=== PATIENT | female | born 1950 | race Two or more races ===

== ENCOUNTER → 2020-07-02 | Outpatient (CLI) | payer MEDICARE, OTHER, SELFPAY ==
--- NOTE | 2020-07-02 | TOBX_PTH ---
PATIENT: ANSELMO WALLER LOC: [facility] U#:[id number] AGE/SX: 70/F ROOM: RE07/02/[address]: Dr. 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 Negative for malignancy. Special stain for fungi is negative for organisms; matched control is appropriate. KIMBERLY:rayo 07/03/20 COMMENT Case has been reviewed in consultation with Dr. Ojeda who concurs with the above diagnosis. IDC:AM MICROSCOPIC DESCRIPTION Slides are reviewed. GROSS DESCRIPTION Received in fixative is one container labeled with the patient's name and designated tongue. The specimen consists of a piece of ordonez-pink mucosal tissue measuring 0.6 x 0.6 x 0.5 cm. The specimen is inked, bisected and submitted entirely in one cassette. / KIMBERLY:rayo 07/02/20 TC:5 CPT: 86938, 60655
== END | disposition home or self-care (01) ==
LOC: LABSPEC 10:21
PROVIDERS: Referring Provider Dentist Oral and Maxillofacial Surgery; Visit Provider Dentist Oral and Maxillofacial Surgery
DX: K14.0 Glossitis (principal)
CPT/HCPCS: 88305; 88312